=== PATIENT | female | born 1935 | race Asian ===

== ENCOUNTER 2018-07-01 08:21 | Inpatient (IN) | payer MEDICARE, BC, OTHER ==
[2018-07-01] VITALS (45 sets, daily range): BP systolic 98–171; BP diastolic 42–95; PULSE 78–106; RESP 12–26; Ht 165.1 cm; Wt 68.0 kg
[~2018-07-01] VITALS: Ht 165.1 cm; Wt 68.0 kg
[2018-07-01] MEDS ORDERED: NACL 0.9% 3 ML SYG IV SCH (11:30)
[2018-07-01] MEDS ORDERED: ONDANSETRON 4 MG INJ IV PRN (11:30)
--- NOTE | 2018-07-01 11:36 | HP ---
Date/Time of Note Date/Time of Note DATE: 07/01/18 TIME: 11:36 Assessment/Plan VTE Prophylaxis Pharmacological prophylaxis: NA/contraindicated Pharm contraindication: bleeding Assessment/Plan Hospital Course 82-year-old female with comorbidities including hypertension, stroke with left hemiparesis, diabetes mellitus type 2, dyslipidemia, hypertension, and hypothyroidism who was found by the family members on the floor with CT head showing left basal ganglia bleed who was prophylactically intubated for airway protection at an outside facility and was transferred to [facility] for further evaluation and management. 1. Acute intracranial hemorrhage. -7 cm left basal ganglia bleed with a 6 mm left rightward midline shift. -Neurosurgery has been consulted. -Patient will remain intubated. -Continue to control blood pressure. -Avoid blood thinners -Patient is a DNR as per the family's request. 2. Hypertension. -Continue blood pressure management to avoid hypertensive episodes. 3. Dyslipidemia. -Continue statins via OGT. 4. Diabetes mellitus type 2. -Continue sliding scale insulin. -Obtain hemoglobin A1c. 5. Hypothyroidism. -Resume Synthroid. Plan: The patient will be admitted to inpatient intensive care floor. The patient will be kept n.p.o. The patient will be started on DVT prophylaxis (B/L SCDs) and gastrointestinal prophylaxis. The patient will remain a DNR. Activities will be bedrest. The rest of the patient's management will be based on the clinical course, inputs from consultants, and the results of diagnostic studies. The plan of care including the patient's poor prognosis was explained to the patient's family, who was at the bedside. The patient's family wanted to keep the patient intubated and current treatment. However they want to avoid any heroic measures including CPR. The patient was seen in collaboration with Dr. Segundo. HPI/SHE Admit Date/Time Admit Date/Time Jul 01, 2018 at 10:31 Hx of Present Illness Reason for admission: Transfer from outside facility for further management of intracranial bleed. Consultants 1. Neurosurgery. 2. Neurology. 3. Pulmonology. This is an 82-year-old female with past medical history of stroke with left hemiparesis, hypertension, dyslipidemia, diabetes mellitus type 2, and hypothyroidism. The patient was in her normal state of health on 06/30/2018 around 10 PM. The patient went to bed. The patient was found down by the family members in the bathroom approximately 7 hours from the time the patient was last well known. The patient had a left gaze deviation. The patient was taken to the nearest emergency room. The patient underwent a CT scan of the brain that showed 7 cm left basal ganglia bleed with a 6 mm left to rightward midline shift. The patient was intubated for airway protection. Patient had an OGT inserted. The patient had elevated blood pressure that was controlled with clevidipine drip. The patient was loaded with 1000 mg Keppra for seizure prophylaxis. The patient got 1 unit of platelet transfusion as per the neurosurgeon's recommendations due to the patient's aspirin use. The patient was transferred to [facility] for further evaluation because of insurance reasons. ROS Subjective hx not possible: pt non-verbal, pt critical status PMH/Family/Social Past Medical History 1. Hypertension. 2. Stroke with left hemiparesis. 3. Diabetes mellitus type 2. 4. Dyslipidemia. 5. Hypertension. 6. Hypothyroidism. Medications Current Medications IV Flush (NS 3 ml) 3 ml PER PROTOCOL IV ; Start 07/01/18 at 11:30 Ondansetron HCl (Zofran Inj) 4 mg Q6H PRN IV NAUSEA/VOMITING; Start 07/01/18 at 11:30 Coded Allergies: No Known Allergy (Unverified , 07/01/18) Exam/Review of Systems Vital Signs Vitals Vital Signs Date Temp Pulse Resp B/P (MAP) Pulse Ox O2 O2 Flow FiO2 Time Delivery Rate 07/01/18 88 15 141/66 Mechanical 11:15 (91) Ventilator 07/01/18 97.1 10:45 07/01/18 100 65 10:30 Exam Exam General: Adequately build 82 year-old female lying in bed in no apparent dis tress. HEENT: Normocephalic, atraumatic. Eyes: Anicteric sclerae, conjunctivae clear. ENT: Nasal septum is midline, oral mucosa is dry. Neck supple, no JVD noticed. Cervical collar in place. Respiratory: Bilaterally diminished breath sounds. ETT to mechanical ventilator. Cardiovascular: S1, S2 heard. Regular rate and rhythm. Abdomen: Soft, nontender, and nondistended. Bowel sounds positive in all 4 quadrants. Genitourinary: Metzger catheter in place. Extremities: No cyanosis, no clubbing, no edema. Peripheral pulses palpable. Neurologic: Patient is sedated. Left upper extremity contracted. Skin: Normal skin turgor. No skin rashes. Additional Comments CT Brain from transferring facility 7 cm left basal ganglia bleed with near complete effacement of the left lateral ventricle. Small volume of intraventricular blood in the posterior horn. 6 mm left to right midline shift. CT Cervical Spine from transferring facility Indeterminate aged 25% T1 compression fracture. AUDREY JO NP Jul 01, 2018 11:36
[2018-07-01] MEDS ORDERED: MIDAZOLAM (DRIP) 50 mg/50 mL 50 ML IV SCH (12:00)
[2018-07-01] MEDS ORDERED: DEXTROSE 50% 50 ML SYRINGE IV PRN ×2 (13:00)
[2018-07-01] MEDS ORDERED: GLUCOSE GEL 15 GRAM TUBE BUCCAL PRN (13:00)
[2018-07-01] MEDS ORDERED: GLUCOSE GEL 15 GRAM TUBE PO PRN ×2 (13:00)
[2018-07-01] MEDS ORDERED: GLUCAGON 1 MG INJ IM PRN (13:00)
[2018-07-01] MEDS ORDERED: FENTAnyl (DRIP) 1000 mcg/100mL 100 ML IV SCH (13:00)
[2018-07-01] MEDS: SOD CHLORIDE 0.9% 1,000 ML IV SCH (13:03)
[2018-07-01] MEDS: INSULIN ASPART [NOVOLOG] 3 ML PEN SC SCH ×3 (13:25→20:43)
[2018-07-01] MEDS ORDERED: niCARdipine 25 MG in SOD CHLORIDE 0.9% 240 ML IV SCH (16:00)
--- NOTE | 2018-07-01 16:57 | CONS ---
Assessment/Plan Assessment/Plan Hospital Course 82 yo F with reported Hx of cerebral aneurysms s/p clipping, CVA and multiple comorbidities... who is admitted to the [facility] ICU for management of a large L basal ganglia hemorrhage. Now s/p Plt transfusion.. Her prognosis for meaningful neurologic recovery is guarded.. P: Await repeat CTH to evaluate for expansion of hemorrhage EEG to evaluate for subclinical seizures Agree with Keppra as ordered for now Ativan iv prn prolonged seizure or cluster Maintain SBP < 160 Hold antiplatelets/anticoagulation indefinitely Cont medical management and other supportive care per primary Will follow clinically, to recommend neurologic studies, as necessary Consultation Date/Type/Reason Admit Date/Time Jul 01, 2018 at 10:31 Type of Consult Neurology Reason for Consultation ICH Requesting Provider: AUDREY JO NP Date/Time of Note DATE: 07/01/18 TIME: 16:57 Hx of Present Illness History was obtained from family and chart review. This is an 82-year-old female with past medical history of stroke with left hemiparesis, hypertension, dyslipidemia, diabetes mellitus type 2, and hypothyroidism. The patient was in her normal state of health on 06/30/2018 around 10 PM. The patient went to bed. The patient was found down by the family members in the bathroom approximately 7 hours from the time the patient was last well known. The patient had a left gaze deviation. The patient was taken to the nearest emergency room. The patient underwent a CT scan of the brain that showed 7 cm left basal ganglia bleed with a 6 mm left to rightward midline shift. The patient was intubated for airway protection. Patient had an OGT inserted. The patient had elevated blood pressure that was controlled with clevidipine drip. The patient was loaded with 1000 mg Keppra for seizure prophylaxis. Patient got 1 unit of platelet transfusion as per the neurosurgeons recommendation due to the patient's aspirin use. The patient was transferred to [facility] for further evaluation because of insurance reasons. Subjective hx not possible: pt non-verbal, pt critical, pt critical status Exam/Review of Systems Exam Vitals Vital Signs Date Temp Pulse Resp B/P (MAP) Pulse Ox O2 O2 Flow FiO2 Time Delivery Rate 07/01/18 40 16:00 07/01/18 88 16 137/66 Mechanical 15:00 (89) Ventilator 07/01/18 100 13:50 07/01/18 97.8 12:00 Exam PE: Gen Appearance: No Apparent Distress HEENT: Intubated Cardiovascular: Regular rate Abdomen: Soft Extremities: Dry NE: The patient was comatose and nonverbal. Cranial nerve examination was limited by mental status. Pupils were equal and reactive to light. There was no afferent pupillary defect. Funduscopic examination was limited. Face was grossly symmetric, w/ present corneal and cough reflexes. Tone was normal. Muscle bulk was normal. I did not see fasciculations. The p atient did not withdraw to noxious stimulation in the UE; minimally withdrew in the LE Coordination and gait testing was limited by mental status. Arm and leg reflexes were within normal limits and symmetric. Ramos's sign was absent. Plantar responses were flexor. Results Result Diagram: 07/01/18 1244 07/01/18 1244 Results 24hrs Laboratory Tests Test 07/01/18 12:44 07/01/18 12:45 07/01/18 13:24 White Blood Count 8.1 Red Blood Count 4.00 L Hemoglobin 12.5 Hematocrit 37.6 Mean Corpuscular Volume 94.0 Mean Corpuscular Hemoglobin 31.3 Mean Corpuscular Hemoglobin Concent 33.2 Red Cell Distribution Width 12.8 Platelet Count 197 Mean Platelet Volume 10.2 Immature Granulocytes % 0.700 H Neutrophils % 75.1 Lymphocytes % 16.3 Monocytes % 7.6 Eosinophils % 0.1 Basophils % 0.2 Nucleated Red Blood Cells % 0.0 Immature Granulocytes # 0.060 H Neutrophils # 6.1 Lymphocytes # 1.3 Monocytes # 0.6 Eosinophils # 0.0 Basophils # 0.0 Nucleated Red Blood Cells # 0.0 Prothrombin Time 11.9 Prothrombin Time Ratio 0.9 INR International Normalized Ratio 0.87 Activated Partial Thromboplast Time 23.2 Sodium Level 141 Potassium Level 4.1 Chloride Level 103 Carbon Dioxide Level 31 Anion Gap 7 Blood Urea Nitrogen 21 H Creatinine 0.66 Est Glomerular Filtrat Rate mL/min Glucose Level 135 Hemoglobin A1c 6.0 H Calcium Level 9.8 Total Bilirubin 0.5 Direct Bilirubin 0.00 Indirect Bilirubin 0.5 Aspartate Amino Transf (AST/SGOT) 61 H Alanine Aminotransferase (ALT/SGPT) 28 Alkaline Phosphatase 66 Creatine Kinase 793 H Creatine Kinase Index 1.0 Creatinine Kinase MB (Mass) 7.57 H Troponin I < 0.012 Total Protein 7.9 Albumin 4.3 Globulin 3.60 H Albumin/Globulin Ratio 1.19 Thyroid Stimulating Hormone (TSH) 2.140 Phosphorus Level 3.4 Magnesium Level 1.9 Triglycerides Level 80 Cholesterol Level 207 H LDL Cholesterol, Calculated 116 HDL Cholesterol 75 Cholesterol/HDL Ratio 2.7 Free Thyroxine 1.68 Bedside Glucose 143 Medications Medication Current Medications IV Flush (NS 3 ml) 3 ml PER PROTOCOL IV ; Start 07/01/18 at 11:30 Ondansetron HCl (Zofran Inj) 4 mg Q6H PRN IV NAUSEA/VOMITING; Start 07/01/18 at 11:30 Midazolam HCl 50 ml @ 1 mls/hr TITRATE IV ; Start 07/01/18 at 12:00 Fentanyl 100 ml @ 2.5 mls/hr TITRATE IV ; Start 07/01/18 at 13:00 Sodium Chloride 1,000 ml @ 75 mls/hr [id number] IV Last administered on 07/01/18at 13:03; Admin Dose 75 MLS/HR; Start 07/01/18 at 12:30 Pantoprazole (Protonix Iv) 40 mg BID@06,18 IV ; Start 07/01/18 at 18:00 Insulin Aspart (Novolog Insulin Pen) NOVOLOG *MILD* ALGORITHM Q4H SC Last administered on 07/01/18at 13:25; Admin Dose 1 UNIT; Start 07/01/18 at 13:30 Labetalol HCl (Labetalol) 10 mg Q10M PRN IV ELEVATED BLOOD PRESSURE; Start 07/01/18 at 12:30 Levothyroxine Sodium (Synthroid) 75 mcg DAILY@06 NGT ; Start 07/02/18 at 06:00 Atorvastatin Calcium (Lipitor) 40 mg HS GTB ; Start 07/01/18 at 21:00 Miscellaneous Information 1 ea NOTE XX ; Start 07/01/18 at 13:00 Glucose (Glutose) 15 gm Q15M PRN PO DECREASED GLUCOSE; Start 07/01/18 at 13:00 Glucose (Glutose) 22.5 gm Q15M PRN PO DECREASED GLUCOSE; Start 07/01/18 at 13:00 Dextrose (D50w Syringe) 25 ml Q15M PRN IV DECREASED GLUCOSE; Start 07/01/18 at 13:00 Dextrose (D50w Syringe) 50 ml Q15M PRN IV DECREASED GLUCOSE; Start 07/01/18 at 13:00 Glucagon (Glucagen) 1 mg Q15M PRN IM DECREASED GLUCOSE; Start 07/01/18 at 13:00 Glucose (Glutose) 15 gm Q15M PRN BUCCAL DECREASED GLUCOSE; Start 07/01/18 at 13:00 Nicardipine HCl 25 mg/Sodium Chloride 250 ml @ 50 mls/hr TITRATE IV ; Start 07/01/18 at 16:00 Past Medical History reviewed Medications Current Medications IV Flush (NS 3 ml) 3 ml PER PROTOCOL IV ; Start 07/01/18 at 11:30 Ondansetron HCl (Zofran Inj) 4 mg Q6H PRN IV NAUSEA/VOMITING; Start 07/01/18 at 11:30 Midazolam HCl 50 ml @ 1 mls/hr TITRATE IV ; Start 07/01/18 at 12:00 Fentanyl 100 ml @ 2.5 mls/hr TITRATE IV ; Start 07/01/18 at 13:00 Sodium Chloride 1,000 ml @ 75 mls/hr [id number] IV Last administered on 07/01/18at 13:03; Admin Dose 75 MLS/HR; Start 07/01/18 at 12:30 Pantoprazole (Protonix Iv) 40 mg BID@06,18 IV ; Start 07/01/18 at 18:00 Insulin Aspart (Novolog Insulin Pen) NOVOLOG *MILD* ALGORITHM Q4H SC Last administered on 07/01/18at 13:25; Admin Dose 1 UNIT; Start 07/01/18 at 13:30 Labetalol HCl (Labetalol) 10 mg Q10M PRN IV ELEVATED BLOOD PRESSURE; Start 07/01/18 at 12:30 Levothyroxine Sodium (Synthroid) 75 mcg DAILY@06 NGT ; Start 07/02/18 at 06:00 Atorvastatin Calcium (Lipitor) 40 mg HS GTB ; Start 07/01/18 at 21:00 Miscellaneous Information 1 ea NOTE XX ; Start 07/01/18 at 13:00 Glucose (Glutose) 15 gm Q15M PRN PO DECREASED GLUCOSE; Start 07/01/18 at 13:00 Glucose (Glutose) 22.5 gm Q15M PRN PO DECREASED GLUCOSE; Start 07/01/18 at 13:00 Dextrose (D50w Syringe) 25 ml Q15M PRN IV DECREASED GLUCOSE; Start 07/01/18 at 13:00 Dextrose (D50w Syringe) 50 ml Q15M PRN IV DECREASED GLUCOSE; Start 07/01/18 at 13:00 Glucagon (Glucagen) 1 mg Q15M PRN IM DECREASED GLUCOSE; Start 07/01/18 at 13:00 Glucose (Glutose) 15 gm Q15M PRN BUCCAL DECREASED GLUCOSE; Start 07/01/18 at 13:00 Nicardipine HCl 25 mg/Sodium Chloride 250 ml @ 50 mls/hr TITRATE IV ; Start 07/01/18 at 16:00 Allergies: Coded Allergies: No Known Allergy (Unverified , 07/01/18) Past Surgical History reviewed Social History reviewed Smoking Status: Never smoker MARIALUISA GRUBER NP Jul 01, 2018 16:57 MARKOS MAX Jul 01, 2018 20:08
--- NOTE | 2018-07-01 16:58 | CONS ---
DATE OF ADMISSION: 07/01/2018 DATE OF CONSULTATION: REASON FOR CONSULT: Shortness of breath. Thank you, Dr. Carlson for this consultation. HISTORY OF PRESENT ILLNESS: This is an 82-year-old lady with history of CVA with left hemiparesis, h ypertension, hyperlipidemia, diabetes, was in her normal state of health until she was found minimall y responsive with left gaze the following morning by family members. Emergent CT of the brain shows 7 cm left basal ganglia hemorrhage with a 6 mm rightward midline shift. She was intubated for airway protection, transferred to [facility], now for continuing care for insurance purposes. PAST MEDICAL HISTORY: As above. MEDICATIONS: Per chart. ALLERGIES: NONE. SOCIAL HISTORY: Nonsmoker, no alcohol, no history of drug use. FAMILY HISTORY: Noncontributory. SYSTEMS REVIEW: A 12-point review of systems was negative other than mentioned above. PHYSICAL EXAMINATION: GENERAL: Elderly-appearing lady, intubated on mechanical ventilation, appears comfortable at rest, n o acute distress. VITAL SIGNS: Currently afebrile, pulse is 85, blood pressure 137/66, O2 saturation 96%, FIO2 of 65%. NECK: Supple. JVD is not elevated. CARDIAC: S1, S2, no added sounds or murmurs. CHEST: Diminished air entry bilaterally with few rales. ABDOMEN: Soft, nontender. No guarding or rebound. EXTREMITIES: No cyanosis, clubbing or edema. NEUROLOGIC: Unable to assess. LABORATORY DATA: White count 8.1, hemoglobin 12.5, platelets of 197. Chemistry: BUN 21, creatinine 0.66. INR 0.872. IMPRESSION: 1. Acute cerebrovascular accident. 2. Encephalopathy. 3. Intubated for airway protection. 4. History of hypertension. 5. History of diabetes mellitus. PLAN: 1. Continue mechanical ventilation. 2. Repeat CT head and neurosurgery recommendations. 3. Continue antiepileptic. 4. DVT and GI prophylaxis. Dictated By: LEROY KEENAN MD SV/NTS Conf#: [id number] DID#: [id number] CC: MARIBELL CARLSON MD; CHIN LU MD;*EndCC*
[2018-07-01] MEDS: PANTOPRAZOLE 40 MG INJ IV SCH (17:37)
[2018-07-01] MEDS: LABETALOL HCL 20MG INJ IV PRN (18:33)
[2018-07-01] MEDS ORDERED: LEVETIRACETAM 500 MG (PMX) 100 ML IVPB SCH (21:00)
[2018-07-01] MEDS ORDERED: ATORVASTATIN 40 MG TAB GTB SCH (21:00)
[2018-07-02] VITALS (53 sets, daily range): BP systolic 98–175; BP diastolic 54–91; PULSE 73–97; RESP 8–26
[2018-07-02] MEDS: INSULIN ASPART [NOVOLOG] 3 ML PEN SC SCH ×4 (02:33→14:00)
[2018-07-02] MEDS: SOD CHLORIDE 0.9% 1,000 ML IV SCH ×2 (02:36→16:08)
[2018-07-02] MEDS: LABETALOL HCL 20MG INJ IV PRN ×4 (02:49→16:09)
[2018-07-02] MEDS ORDERED: LEVOTHYROXINE 75 MCG TAB NGT SCH (06:00)
[2018-07-02] MEDS: PANTOPRAZOLE 40 MG INJ IV SCH (06:27)
--- NOTE | 2018-07-02 07:32 | RADRPT ---
Echocardiogram Report Patient Name: Jarod COWARTtient ID: [id number] : 5 (82y 9m)Study Date: 07/01/2018 2:37:07 PM Gender: FAccession #: [id number] Tech: William Arreguin [facility] Location: 119-A Ref.Physician: AUDREY JO Height(Cm): BSA: Weight(Kg): Quality: Technically Difficult StudyAccount #: Procedures: Echocardiographic Report: Transthoracic echocardiogram with complete 2D, M-Mode, and doppler examination. Indications: Stroke. Measurements: 2D/M Mode Doppler Measurement Value Normal Range Measurement Value Normal Range LVIDd 2D 3.3 [ 3.8 - 5.2 ] cm AV Peak Mao 1.3 [ 100.0 - 170.0 ] cm/sec LVIDs 2D 2.0 [ 2.2 - 3.5 ] cm AV Peak PG 6.0 [ 2.0 - 9.0 ] mmHg LVPWd 2D 1.0 [ 0.6 - 0.9 ] cm LVOT Peak Mao 1.0 [ 70.0 - 110.0 ] cm/sec IVSd 2D 1.2 [ 0.6 - 0.9 ] cm LVOT Peak PG 4.0 [ 2.0 - 6.0 ] mmHg AoR Diam 2D 1.9 [ 2.3 - 3.1 ] cm MV E Peak Mao 0.9 [ 60.0 - 130.0 ] cm/sec EDV 2D 45.8 [ 46.0 - 106.0 ] ml MV A Peak Mao 0.8 [ 100.0 - 120.0 ] cm/sec ESV 2D 12.7 [ 14.0 - 42.0 ] ml MV E/A 1.1 [ 0.8 - 1.5 ] ratio EF 2D 72.3 [ 54.0 - 74.0 ] percent MV Decel Time 158 [ 104 - 258 ] msec LA Dimen 2D 3.6 [ 2.7 - 3.8 ] cm Lat E` Mao 0.1 [ 10.0 - 15.0 ] cm/sec Lateral E/E` 10.5 [ 1.0 - 2.0 ] ratio Med E` Mao 0.0 cm/sec MV E/A 1.1 [ 0.8 - 1.5 ] ratio TR Peak Mao 2.7 [ 100.0 - 280.0 ] cm/sec TR Peak PG 30.0 mmHg RVSP 40.0 [ 10.0 - 36.0 ] mmHg Findings: Left Ventricle: Normal left ventricular systolic function. Normal left ventricular cavity size. Sigmoid septum. Ejection fraction is visually estimated at 65 %. Tissue Doppler/Mitral Doppler indices are consistent with impaired relaxation (Stage I diastolic dysfunction). Right Ventricle: Normal right ventricular size. Normal right ventricular systolic function. Left Atrium: The left atrium is normal in size. Right Atrium: The right atrium is normal in size. Mitral Valve: Mild mitral leaflet calcification. Mild mitral annular calcification. Trace mitral regurgitation. Aortic Valve: No significant aortic stenosis or insufficiency. Aortic valve not well visualized. Aortic cusps appear mildly calcified. Tricuspid Valve: Normal appearance of the tricuspid valve. Tricuspid valve not well visualized. Estimated peak PA systolic pressure 40 mmHg. There is mild tricuspid regurgitation. Pulmonic Valve: Pulmonic valve not well visualized. Pericardium: Normal pericardium with no significant pericardial effusion. Aorta: Normal aortic root. IVC: Normal size and normal respiratory collapse consistent with normal right atrial pressure. Conclusions: Normal left ventricular systolic function. Normal left ventricular cavity size. Sigmoid septum. Ejection fraction is visually estimated at 65 %. Tissue Doppler/Mitral Doppler indices are consistent with impaired relaxation (Stage I diastolic dysfunction). Mild mitral leaflet calcification. Mild mitral annular calcification. Trace mitral regurgitation. No significant aortic stenosis or insufficiency. Aortic valve not well visualized. Aortic cusps appear mildly calcified. Normal appearance of the tricuspid valve. Tricuspid valve not well visualized. Estimated peak PA systolic pressure 40 mmHg. There is mild tricuspid regurgitation. Electronically Signed By: Kyle Montaño 2018-07-02 07:31:02 PST
--- NOTE | 2018-07-02 09:11 | PN ---
Date/Time of Note Date/Time of Note DATE: 07/02/18 TIME: 09:05 Assessment/Plan VTE Prophylaxis Risk score (from Ns)>0 risk: 12 SCD applied (from Ns): Yes Pharmacological prophylaxis: NA/contraindicated Pharm contraindication: bleeding Lines/Catheters IV Catheter Type (from Nrsg): Saline Lock Urinary Cath still in place: Yes Reason Cath still needed: terminal illness/intractable pain Assessment/Plan Hospital Course SUBJECTIVE: The patient's status unchanged. OBJECTIVE: Physical Exam General: Adequately build 82 year-old female lying in bed in no apparent distress. HEENT: Normocephalic, atraumatic. Eyes: Anicteric sclerae, conjunctivae clear. ENT: Nasal septum is midline, oral mucosa is dry. Neck supple, no JVD noticed. Cervical collar in place. Respiratory: Bilaterally diminished breath sounds. ETT to mechanical ventilator. Cardiovascular: S1, S2 heard. Regular rate and rhythm. Abdomen: Soft, nontender, and nondistended. Bowel sounds positive in all 4 quadrants. Genitourinary: Metzger catheter in place. Extremities: No cyanosis, no clubbing, no edema. Peripheral pulses palpable. Neurologic: Patient is sedated. Left upper extremity contracted. Skin: Normal skin turgor. No skin rashes. Labs & Vitals per chart ASSESSMENT & PLAN 82-year-old female with comorbidities including hypertension, stroke with left hemiparesis, diabetes mellitus type 2, dyslipidemia, hypertension, and hypothyroidism who was found by the family members on the floor with CT head showing left basal ganglia bleed who was prophylactically intubated for airway protection at an outside facility and was transferred to [facility] for further evaluation and management. 1. Acute intracranial hemorrhage. -7 cm left basal ganglia bleed with a 6 mm left rightward midline shift ( Repeat CT scan showed a large left frontal white matter, lateral basal ganglia and left temporal stem intraparenchymal hemorrhage extending into the ventricular system resulting in surrounding vasogenic edema and mass effect with 7.5 mm of [id number] midline shift). -Neurosurgery has been consulted. -Patient will remain intubated. -Continue to control blood pressure. -Avoid blood thinners -Patient is a DNR as per the family's request. -Being followed by pulmonology and neurology. 2. Hypertension. -Continue blood pressure management to avoid hypertensive episodes. 3. Dyslipidemia. -Continue statins via OGT. 4. Diabetes mellitus type 2. -Continue sliding scale insulin. -Hemoglobin A1c 6.0. 5. Hypothyroidism. -Continue Synthroid. 6. Fluids, electrolytes, and nutrition. -N.p.o. -Continue normal saline. 7. DVT prophylaxis -Bilateral SCDs. 8. Plan. -Continue current care. -Await neurosurgery evaluation. Critical care time: 35 minutes. The patient was seen in collaboration with Dr. Segundo. At 10:15 AM, Dr. Ortiz called back and talked to the patient's son and daughter at the bedside and explained the poor prognosis. The patient's family would like to see Dr. Ortiz in person. Meanwhile, the family will decide between themselves regarding the future plan of care including any aggressive management versus termination of care. Result Diagram: 07/02/18 0427 07/02/18 0435 Results 24hrs Laboratory Tests Test 07/01/18 12:44 07/01/18 12:45 07/01/18 13:24 07/01/18 17:43 White Blood 8.1 Count Red Blood Count 4.00 L Hemoglobin 12.5 Hematocrit 37.6 Mean Corpuscular 94.0 Volume Mean Corpuscular 31.3 Hemoglobin Mean Corpuscular 33.2 Hemoglobin Cari nt Red Cell 12.8 Distribution Width Platelet Count 197 Mean Platelet 10.2 Volume Immature 0.700 H Granulocytes % Neutrophils % 75.1 Lymphocytes % 16.3 Monocytes % 7.6 Eosinophils % 0.1 Basophils % 0.2 Nucleated Red 0.0 Blood Cells % Immature 0.060 H Granulocytes # Neutrophils # 6.1 Lymphocytes # 1.3 Monocytes # 0.6 Eosinophils # 0.0 Basophils # 0.0 Nucleated Red 0.0 Blood Cells # Prothrombin Time 11.9 Prothrombin Time 0.9 Ratio INR 0.87 International Normalized Ratio Activated 23.2 Partial Thrombop last Time Sodium Level 141 Potassium Level 4.1 Chloride Level 103 Carbon Dioxide 31 Level Anion Gap 7 Blood Urea 21 H Nitrogen Creatinine 0.66 Est Glomerular Filtrat Rate mL/min Glucose Level 135 Hemoglobin A1c 6.0 H Calcium Level 9.8 Total Bilirubin 0.5 Direct Bilirubin 0.00 Indirect 0.5 Bilirubin Aspartate Amino 61 H Transf (AST/SGOT ) Alanine 28 Aminotransferase (ALT/SGPT) Alkaline 66 Phosphatase Creatine Kinase 793 H Creatine Kinase 1.0 Index Creatinine 7.57 H Kinase MB (Mass) Troponin I < 0.012 Total Protein 7.9 Albumin 4.3 Globulin 3.60 H Albumin/Globulin 1.19 Ratio Thyroid 2.140 Stimulating Hormone (TSH) Phosphorus Level 3.4 Magnesium Level 1.9 Triglycerides 80 Level Cholesterol 207 H Level LDL Cholesterol, 116 Calculated HDL Cholesterol 75 Cholesterol/HDL 2.7 Ratio Free Thyroxine 1.68 Bedside Glucose 143 128 Test 07/01/18 19:40 07/01/18 20:43 07/02/18 02:32 07/02/18 04:27 Blood Gas Blood arterial Specimen Source Arterial Blood 07/01/2018 8:00: Date Drawn 39 PM Arterial Blood 7.452 H pH (Temp corrected) Arterial Blood 35.1 pCO2 (Temp correct) Arterial Blood 178.8 H pO2 (Temp corrected) Arterial Blood 24.0 HCO3 Arterial Blood 0.4 Base Excess Arterial Blood 98.9 Oxygen Saturatio n Chris Test ACCEPTAB Arterial Blood Right Radial Gas Puncture Site Arterial 0.5 Blood Carboxyhem oglobin Arterial Blood 0 Methemoglobin Blood Gas A-a O2 66.0 H Differential Oxyhemoglobin 98.4 Percent Blood Gas 37.0 Temperature Blood Gas 14.0 Respiration Rate Blood Gas Actual 22 Respiration Rate Blood Gas VENT - AC Modality FiO2 40.0 Blood Gas Tidal 450.0 Volume Blood Gas Low 5.0 PEEP Setting Blood Gas [facility] Notified Whom Blood Gas 07/01/2018 8:08: Notified Time 55 PM Bedside Glucose 124 119 White Blood 7.5 Count Red Blood Count 3.50 L Hemoglobin 11.1 L Hematocrit 33.0 L Mean Corpuscular 94.3 Volume Mean Corpuscular 31.7 Hemoglobin Mean Corpuscular 33.6 Hemoglobin Cari nt Red Cell 12.8 Distribution Width Platelet Count 187 Mean Platelet 10.6 H Volume Immature 0.300 Granulocytes % Neutrophils % 76.8 Lymphocytes % 15.6 Monocytes % 7.2 Eosinophils % 0.0 Basophils % 0.1 Nucleated Red 0.0 Blood Cells % Immature 0.020 Granulocytes # Neutrophils # 5.7 Lymphocytes # 1.2 Monocytes # 0.5 Eosinophils # 0.0 Basophils # 0.0 Nucleated Red 0.0 Blood Cells # Test 07/02/18 04:34 07/02/18 04:35 07/02/18 05:07 07/02/18 07:00 Phosphorus Level 3.1 Magnesium Level 1.8 Creatine Kinase 1063 H Creatine Kinase 0.3 Index Creatinine 2.85 H Kinase MB (Mass) Troponin I 0.028 Sodium Level 141 Potassium Level 4.1 Chloride Level 102 Carbon Dioxide 23 Level Anion Gap 16 #H Blood Urea 18 Nitrogen Creatinine 0.73 Est Glomerular Filtrat Rate mL/min Glucose Level 139 Calcium Level 9.5 Total Bilirubin 0.8 Direct Bilirubin 0.00 Indirect 0.8 Bilirubin Aspartate Amino 49 H Transf (AST/SGOT ) Alanine 28 Aminotransferase (ALT/SGPT) Alkaline 51 Phosphatase Total Protein 6.9 # Albumin 3.8 Globulin 3.10 Albumin/Globulin 1.22 Ratio Bedside Glucose 144 Blood Gas Blood arterial Specimen Source Arterial Blood 07/02/2018 7:17: Date Drawn 22 AM Arterial Blood 7.498 H pH (Temp corrected) Arterial Blood 30.4 L pCO2 (Temp correct) Arterial Blood 119.7 H pO2 (Temp corrected) Arterial Blood 23.1 HCO3 Arterial Blood 0.6 Base Excess Arterial Blood 98.0 Oxygen Saturatio n Chris Test ACCEPTAB Arterial Blood Right Radial Gas Puncture Site Arterial 0 Blood Carboxyhem oglobin Arterial Blood 0.2 Methemoglobin Blood Gas A-a O2 58.5 H Differential Oxyhemoglobin 97.8 Percent Blood Gas 37.0 Temperature Blood Gas 14.0 Respiration Rate Blood Gas Actual 20 Respiration Rate Blood Gas VENT - AC Modality FiO2 30.0 Blood Gas Tidal 450.0 Volume Blood Gas Low 5.0 PEEP Setting Blood Gas TM Notified Whom Blood Gas 07/02/2018 7:26: Notified Time 04 AM Exam/Review of Systems Exam Vitals Vital Signs Date Temp Pulse Resp B/P (MAP) Pulse Ox O2 O2 Flow FiO2 Time Delivery Rate 07/02/18 79 20 100 30 07:37 07/02/18 139/73 Mechanical 07:30 (95) Ventilator 07/02/18 98.5 04:00 Intake and Output 07/01/18 07/01/18 07/02/18 1515:00 23:00 07:00 IntakeIntake Total 150 ml 600 ml 524 ml OutputOutput Total 220 ml 95 ml 230 ml BalanceBalance -70 ml 505 ml 294 ml Results Results 24hrs Laboratory Tests Test 07/01/18 12:44 07/01/18 12:45 07/01/18 13:24 07/01/18 17:43 White Blood 8.1 Count Red Blood Count 4.00 L Hemoglobin 12.5 Hematocrit 37.6 Mean Corpuscular 94.0 Volume Mean Corpuscular 31.3 Hemoglobin Mean Corpuscular 33.2 Hemoglobin Cari nt Red Cell 12.8 Distribution Width Platelet Count 197 Mean Platelet 10.2 Volume Immature 0.700 H Granulocytes % Neutrophils % 75.1 Lymphocytes % 16.3 Monocytes % 7.6 Eosinophils % 0.1 Basophils % 0.2 Nucleated Red 0.0 Blood Cells % Immature 0.060 H Granulocytes # Neutrophils # 6.1 Lymphocytes # 1.3 Monocytes # 0.6 Eosinophils # 0.0 Basophils # 0.0 Nucleated Red 0.0 Blood Cells # Prothrombin Time 11.9 Prothrombin Time 0.9 Ratio INR 0.87 International Normalized Ratio Activated 23.2 Partial Thrombop last Time Sodium Level 141 Potassium Level 4.1 Chloride Level 103 Carbon Dioxide 31 Level Anion Gap 7 Blood Urea 21 H Nitrogen Creatinine 0.66 Est Glomerular Filtrat Rate mL/min Glucose Level 135 Hemoglobin A1c 6.0 H Calcium Level 9.8 Total Bilirubin 0.5 Direct Bilirubin 0.00 Indirect 0.5 Bilirubin Aspartate Amino 61 H Transf (AST/SGOT ) Alanine 28 Aminotransferase (ALT/SGPT) Alkaline 66 Phosphatase Creatine Kinase 793 H Creatine Kinase 1.0 Index Creatinine 7.57 H Kinase MB (Mass) Troponin I < 0.012 Total Protein 7.9 Albumin 4.3 Globulin 3.60 H Albumin/Globulin 1.19 Ratio Thyroid 2.140 Stimulating Hormone (TSH) Phosphorus Level 3.4 Magnesium Level 1.9 Triglycerides 80 Level Cholesterol 207 H Level LDL Cholesterol, 116 Calculated HDL Cholesterol 75 Cholesterol/HDL 2.7 Ratio Free Thyroxine 1.68 Bedside Glucose 143 128 Test 07/01/18 19:40 07/01/18 20:43 07/02/18 02:32 07/02/18 04:27 Blood Gas Blood arterial Specimen Source Arterial Blood 07/01/2018 8:00: Date Drawn 39 PM Arterial Blood 7.452 H pH (Temp corrected) Arterial Blood 35.1 pCO2 (Temp correct) Arterial Blood 178.8 H pO2 (Temp corrected) Arterial Blood 24.0 HCO3 Arterial Blood 0.4 Base Excess Arterial Blood 98.9 Oxygen Saturatio n Chris Test ACCEPTAB Arterial Blood Right Radial Gas Puncture Site Arterial 0.5 Blood Carboxyhem oglobin Arterial Blood 0 Methemoglobin Blood Gas A-a O2 66.0 H Differential Oxyhemoglobin 98.4 Percent Blood Gas 37.0 Temperature Blood Gas 14.0 Respiration Rate Blood Gas Actual 22 Respiration Rate Blood Gas VENT - AC Modality FiO2 40.0 Blood Gas Tidal 450.0 Volume Blood Gas Low 5.0 PEEP Setting Blood Gas D [facility] Notified Whom Blood Gas 07/01/2018 8:08: Notified Time 55 PM Bedside Glucose 124 119 White Blood 7.5 Count Red Blood Count 3.50 L Hemoglobin 11.1 L Hematocrit 33.0 L Mean Corpuscular 94.3 Volume Mean Corpuscular 31.7 Hemoglobin Mean Corpuscular 33.6 Hemoglobin Cari nt Red Cell 12.8 Distribution Width Platelet Count 187 Mean Platelet 10.6 H Volume Immature 0.300 Granulocytes % Neutrophils % 76.8 Lymphocytes % 15.6 Monocytes % 7.2 Eosinophils % 0.0 Basophils % 0.1 Nucleated Red 0.0 Blood Cells % Immature 0.020 Granulocytes # Neutrophils # 5.7 Lymphocytes # 1.2 Monocytes # 0.5 Eosinophils # 0.0 Basophils # 0.0 Nucleated Red 0.0 Blood Cells # Test 07/02/18 04:34 07/02/18 04:35 07/02/18 05:07 07/02/18 07:00 Phosphorus Level 3.1 Magnesium Level 1.8 Creatine Kinase 1063 H Creatine Kinase 0.3 Index Creatinine 2.85 H Kinase MB (Mass) Troponin I 0.028 Sodium Level 141 Potassium Level 4.1 Chloride Level 102 Carbon Dioxide 23 Level Anion Gap 16 #H Blood Urea 18 Nitrogen Creatinine 0.73 Est Glomerular Filtrat Rate mL/min Glucose Level 139 Calcium Level 9.5 Total Bilirubin 0.8 Direct Bilirubin 0.00 Indirect 0.8 Bilirubin Aspartate Amino 49 H Transf (AST/SGOT ) Alanine 28 Aminotransferase (ALT/SGPT) Alkaline 51 Phosphatase Total Protein 6.9 # Albumin 3.8 Globulin 3.10 Albumin/Globulin 1.22 Ratio Bedside Glucose 144 Blood Gas Blood arterial Specimen Source Arterial Blood 07/02/2018 7:17: Date Drawn 22 AM Arterial Blood 7.498 H pH (Temp corrected) Arterial Blood 30.4 L pCO2 (Temp correct) Arterial Blood 119.7 H pO2 (Temp corrected) Arterial Blood 23.1 HCO3 Arterial Blood 0.6 Base Excess Arterial Blood 98.0 Oxygen Saturatio n Chris Test ACCEPTAB Arterial Blood Right Radial Gas Puncture Site Arterial 0 Blood Carboxyhem oglobin Arterial Blood 0.2 Methemoglobin Blood Gas A-a O2 58.5 H Differential Oxyhemoglobin 97.8 Percent Blood Gas 37.0 Temperature Blood Gas 14.0 Respiration Rate Blood Gas Actual 20 Respiration Rate Blood Gas VENT - AC Modality FiO2 30.0 Blood Gas Tidal 450.0 Volume Blood Gas Low 5.0 PEEP Setting Blood Gas TM Notified Whom Blood Gas 07/02/2018 7:26: Notified Time 04 AM Medications Medication Current Medications IV Flush (NS 3 ml) 3 ml PER PROTOCOL IV ; Start 07/01/18 at 11:30 Ondansetron HCl (Zofran Inj) 4 mg Q6H PRN IV NAUSEA/VOMITING; Start 07/01/18 at 11:30 Midazolam HCl 50 ml @ 1 mls/hr TITRATE IV ; Start 07/01/18 at 12:00 Fentanyl 100 ml @ 2.5 mls/hr TITRATE IV ; Start 07/01/18 at 13:00 Sodium Chloride 1,000 ml @ 75 mls/hr [id number] IV Last administered on 07/02/18at 02:36; Admin Dose 75 MLS/HR; Start 07/01/18 at 12:30 Pantoprazole (Protonix Iv) 40 mg BID@06,18 IV Last administered on 07/02/18 0 6:27; Admin Dose 40 MG; Start 07/01/18 at 18:00 Insulin Aspart (Novolog Insulin Pen) NOVOLOG *MILD* ALGORITHM Q4H SC Last administered on 07/01/18 13:25; Admin Dose 1 UNIT; Start 07/01/18 at 13:30 Labetalol HCl (Labetalol) 10 mg Q10M PRN IV ELEVATED BLOOD PRESSURE Last administered on 07/02/18 04:26; Admin Dose 10 MG; Start 07/01/18 at 12:30 Levothyroxine Sodium (Synthroid) 75 mcg DAILY@06 NGT Last administered on 07/02/18 06:27; Admin Dose 75 MCG; Start 07/02/18 at 06:00 Atorvastatin Calcium (Lipitor) 40 mg HS GTB Last administered on 07/01/18at 20:44; Admin Dose 40 MG; Start 07/01/18 at 21:00 Miscellaneous Information 1 ea NOTE XX ; Start 07/01/18 at 13:00 Glucose (Glutose) 15 gm Q15M PRN PO DECREASED GLUCOSE; Start 07/01/18 at 13:00 Glucose (Glutose) 22.5 gm Q15M PRN PO DECREASED GLUCOSE; Start 07/01/18 at 13:00 Dextrose (D50w Syringe) 25 ml Q15M PRN IV DECREASED GLUCOSE; Start 07/01/18 at 13:00 Dextrose (D50w Syringe) 50 ml Q15M PRN IV DECREASED GLUCOSE; Start 07/01/18 at 13:00 Glucagon (Glucagen) 1 mg Q15M PRN IM DECREASED GLUCOSE; Start 07/01/18 at 13:00 Glucose (Glutose) 15 gm Q15M PRN BUCCAL DECREASED GLUCOSE; Start 07/01/18 at 13:00 Nicardipine HCl 25 mg/Sodium Chloride 250 ml @ 50 mls/hr TITRATE IV ; Start 07/01/18 at 16:00 AUDREY JO NP Jul 02, 2018 09:11
--- NOTE | 2018-07-02 14:12 | CONS ---
Assessment/Plan Assessment/Plan Hospital Course 82 yo F with reported Hx of cerebral aneurysms s/p clipping, CVA and multiple comorbidities... who is admitted to the [facility] ICU for management of a large L basal ganglia hemorrhage. Now s/p Plt transfusion.. Repeat CTH is notable for expansion of the large L basal ganglia hemorrhage into the lateral and third ventricles Her prognosis for meaningful neurologic recovery is poor.. P: Awaiting family decision to transition goals of care Await EEG to evaluate for subclinical seizures Agree with Giovany as ordered for now Ativan iv prn prolonged seizure or cluster Maintain SBP < 160 Hold antiplatelets/anticoagulation indefinitely Cont medical management and other supportive care per primary Will follow clinically, to recommend neurologic studies, as necessary Consultation Date/Type/Reason Admit Date/Time Jul 01, 2018 at 10:31 Type of Consult Neurology Reason for Consultation I[facility] Requesting Provider: AUDREY JO NP Date/Time of Note DATE: 07/02/18 TIME: 14:12 24 HR Interval Summary Free Text/Dictation Continues critical care. S/p repeat CTH. Case reportedly discussed with neurosurgery who stated that no surgical intervention is warranted at this time. Subjective hx not possible: pt non-verbal, pt critical, pt critical status Exam Vital Signs Vitals Vital Signs Date Temp Pulse Resp B/P (MAP) Pulse Ox O2 O2 Flow FiO2 Time Delivery Rate 07/02/18 80 16 98 30 13:41 07/02/18 150/61 13:30 (90) 07/02/18 Mechanical 12:30 Ventilator 07/02/18 97.8 12:00 Intake and Output 07/01/18 07/01/18 07/02/18 1515:00 23:00 07:00 IntakeIntake Total 150 ml 600 ml 524 ml OutputOutput Total 220 ml 95 ml 230 ml BalanceBalance -70 ml 505 ml 294 ml Exam PE: Gen Appearance: No Apparent Distress HEENT: Intubated Cardiovascular: Regular rate Abdomen: Soft Extremities: Dry NE: The patient was obtunded. Briefly opened eyes to noxious stimuli. Cranial nerve examination was limited by mental status. Pupils were equal and reactive to light. There was no afferent pupillary defect. Funduscopic examination was limited. Face was grossly symmetric, w/ present corneal and cough reflexes. Tone was normal. Muscle bulk was normal. I did not see fasciculations. Tripleflexion of the R side was noted. Coordination and gait testing was limited by mental status. Arm and leg reflexes were within normal limits and symmetric. Ramos's sign was absent. Plantar responses were flexor. MARIALUISA GRUBER NP Jul 02, 2018 14:12
--- NOTE | 2018-07-02 14:26 | CONS ---
Consult Date/Type/Reason Admit Date/Time Jul 01, 2018 at 10:31 Initial Consult Date Type of Consult Pulmonary Requesting Provider: AUDREY JO NP Date/Time of Note DATE: 07/02/18 TIME: 14:25 Subjective Patient remains intubated on mechanical ventilation appears comfortable at rest. Objective Vital Signs Date Temp Pulse Resp B/P (MAP) Pulse Ox O2 O2 Flow FiO2 Time Delivery Rate 07/02/18 80 16 98 30 13:41 07/02/18 150/61 13:30 (90) 07/02/18 Mechanical 12:30 Ventilator 07/02/18 97.8 12:00 Intake and Output 07/01/18 07/01/18 07/02/18 1515:00 23:00 07:00 IntakeIntake Total 150 ml 600 ml 524 ml OutputOutput Total 220 ml 95 ml 230 ml BalanceBalance -70 ml 505 ml 294 ml Exam PHYSICAL EXAMINATION: GENERAL: Elderly-appearing lady, intubated on mechanical ventilation, appears comfortable at rest, no acute distress. VITAL SIGNS: NECK: Supple. JVD is not elevated. CARDIAC: S1, S2, no added sounds or murmurs. CHEST: Diminished air entry bilaterally with few rales. ABDOMEN: Soft, nontender. No guarding or rebound. EXTREMITIES: No cyanosis, clubbing or edema. NEUROLOGIC: Unable to assess. Vent Setting Ventilator Support Mode: AC Fraction of Inspired Oxygen pe: 30 Positive End Expiratory Pressu: 5.0 Results/Medications Result Diagram: 07/02/18 0427 07/02/18 0435 Results 24 hrs Laboratory Tests Test 07/01/18 17:43 07/01/18 19:40 07/01/18 20:43 07/02/18 02:32 Bedside Glucose 128 124 119 Blood Gas Blood arterial Specimen Source Arterial Blood 07/01/2018 8:00: Date Drawn 39 PM Arterial Blood 7.452 H pH (Temp corrected) Arterial Blood 35.1 pCO2 (Temp correct) Arterial Blood 178.8 H pO2 (Temp corrected) Arterial Blood 24.0 HCO3 Arterial Blood 0.4 Base Excess Arterial Blood 98.9 Oxygen Saturatio n Chris Test ACCEPTAB Arterial Blood Right Radial Gas Puncture Site Arterial 0.5 Blood Carboxyhem oglobin Arterial Blood 0 Methemoglobin Blood Gas A-a O2 66.0 H Differential Oxyhemoglobin 98.4 Percent Blood Gas 37.0 Temperature Blood Gas 14.0 Respiration Rate Blood Gas Actual 22 Respiration Rate Blood Gas VENT - AC Modality FiO2 40.0 Blood Gas Tidal 450.0 Volume Blood Gas Low 5.0 PEEP Setting Blood Gas D [facility] Notified Whom Blood Gas 07/01/2018 8:08: Notified Time 55 PM Test 07/02/18 04:27 07/02/18 04:34 07/02/18 04:35 07/02/18 05:07 White Blood 7.5 Count Red Blood Count 3.50 L Hemoglobin 11.1 L Hematocrit 33.0 L Mean Corpuscular 94.3 Volume Mean Corpuscular 31.7 Hemoglobin Mean Corpuscular 33.6 Hemoglobin Cari nt Red Cell 12.8 Distribution Width Platelet Count 187 Mean Platelet 10.6 H Volume Immature 0.300 Granulocytes % Neutrophils % 76.8 Lymphocytes % 15.6 Monocytes % 7.2 Eosinophils % 0.0 Basophils % 0.1 Nucleated Red 0.0 Blood Cells % Immature 0.020 Granulocytes # Neutrophils # 5.7 Lymphocytes # 1.2 Monocytes # 0.5 Eosinophils # 0.0 Basophils # 0.0 Nucleated Red 0.0 Blood Cells # Phosphorus Level 3.1 Magnesium Level 1.8 Creatine Kinase 1063 H Creatine Kinase 0.3 Index Creatinine 2.85 H Kinase MB (Mass) Troponin I 0.028 Sodium Level 141 Potassium Level 4.1 Chloride Level 102 Carbon Dioxide 23 Level Anion Gap 16 #H Blood Urea 18 Nitrogen Creatinine 0.73 Est Glomerular Filtrat Rate mL/min Glucose Level 139 Calcium Level 9.5 Total Bilirubin 0.8 Direct Bilirubin 0.00 Indirect 0.8 Bilirubin Aspartate Amino 49 H Transf (AST/SGOT ) Alanine 28 Aminotransferase (ALT/SGPT) Alkaline 51 Phosphatase Total Protein 6.9 # Albumin 3.8 Globulin 3.10 Albumin/Globulin 1.22 Ratio Bedside Glucose 144 Test 07/02/18 07:00 07/02/18 08:55 07/02/18 13:56 Blood Gas Blood arterial Specimen Source Arterial Blood 07/02/2018 7:17: Date Drawn 22 AM Arterial Blood 7.498 H pH (Temp corrected) Arterial Blood 30.4 L pCO2 (Temp correct) Arterial Blood 119.7 H pO2 (Temp corrected) Arterial Blood 23.1 HCO3 Arterial Blood 0.6 Base Excess Arterial Blood 98.0 Oxygen Saturatio n Chris Test ACCEPTAB Arterial Blood Right Radial Gas Puncture Site Arterial 0 Blood Carboxyhem oglobin Arterial Blood 0.2 Methemoglobin Blood Gas A-a O2 58.5 H Differential Oxyhemoglobin 97.8 Percent Blood Gas 37.0 Temperature Blood Gas 14.0 Respiration Rate Blood Gas Actual 20 Respiration Rate Blood Gas VENT - AC Modality FiO2 30.0 Blood Gas Tidal 450.0 Volume Blood Gas Low 5.0 PEEP Setting Blood Gas TM Notified Whom Blood Gas 07/02/2018 7:26: Notified Time 04 AM Bedside Glucose 138 144 Medications Current Medications IV Flush (NS 3 ml) 3 ml PER PROTOCOL IV ; Start 07/01/18 at 11:30 Ondansetron HCl (Zofran Inj) 4 mg Q6H PRN IV NAUSEA/VOMITING; Start 07/01/18 at 11:30 Midazolam HCl 50 ml @ 1 mls/hr TITRATE IV ; Start 07/01/18 at 12:00 Fentanyl 100 ml @ 2.5 mls/hr TITRATE IV ; Start 07/01/18 at 13:00 Sodium Chloride 1,000 ml @ 75 mls/hr [id number] IV Last administered on 07/02/18at 02:36; Admin Dose 75 MLS/HR; Start 07/01/18 at 12:30 Pantoprazole (Protonix Iv) 40 mg BID@06,18 IV Last administered on 07/02/18 06:27; Admin Dose 40 MG; Start 07/01/18 at 18:00 Insulin Aspart (Novolog Insulin Pen) NOVOLOG *MILD* ALGORITHM Q4H SC Last administered on 07/02/18at 14:00; Admin Dose 1 UNIT; Start 07/01/18 at 13:30 Labetalol HCl (Labetalol) 10 mg Q10M PRN IV ELEVATED BLOOD PRESSURE Last administered on 07/02/18 11:20; Admin Dose 10 MG; Start 07/01/18 at 12:30 Levothyroxine Sodium (Synthroid) 75 mcg DAILY@06 NGT Last administered on 07/02/18at 06:27; Admin Dose 75 MCG; Start 07/02/18 at 06:00 Atorvastatin Calcium (Lipitor) 40 mg HS GTB Last administered on 07/01/18at 20:44; Admin Dose 40 MG; Start 07/01/18 at 21:00 Miscellaneous Information 1 ea NOTE XX ; Start 07/01/18 at 13:00 Glucose (Glutose) 15 gm Q15M PRN PO DECREASED GLUCOSE; Start 07/01/18 at 13:00 Glucose (Glutose) 22.5 gm Q15M PRN PO DECREASED GLUCOSE; Start 07/01/18 at 13:00 Dextrose (D50w Syringe) 25 ml Q15M PRN IV DECREASED GLUCOSE; Start 07/01/18 at 13:00 Dextrose (D50w Syringe) 50 ml Q15M PRN IV DECREASED GLUCOSE; Start 07/01/18 at 13:00 Glucagon (Glucagen) 1 mg Q15M PRN IM DECREASED GLUCOSE; Start 07/01/18 at 13:00 Glucose (Glutose) 15 gm Q15M PRN BUCCAL DECREASED GLUCOSE; Start 07/01/18 at 13:00 Nicardipine HCl 25 mg/Sodium Chloride 250 ml @ 50 mls/hr TITRATE IV ; Start 07/01/18 at 16:00 Assessment/Plan Hospital Course (Demo Recall) IMPRESSION: 1. Acute cerebrovascular accident. Prior history of CVA 2. Encephalopathy. 3. Intubated for airway protection. 4. History of hypertension. 5. History of diabetes mellitus. 6. Questionable C-spine injury PLAN: 1. Continue mechanical ventilation. Weaning trial once stable from neurological standpoint 2. Repeat CT head and neurosurgery recommendations. DC c-collar if possible 3. Continue antiepileptic. 4. DVT and GI prophylaxis. Critical care time 40 minutes LEROY KEENAN MD, [facility] Jul 02, 2018 14:26
[2018-07-02] MEDS: morphine (DRIP) 100 MG/100 ML 100 ML IV SCH (19:42)
[2018-07-02] MEDS ORDERED: LORAZEPAM 2 MG INJ IV ONE (20:00)
[2018-07-03] VITALS (7 sets, daily range): BP systolic 92–120; BP diastolic 50–58; PULSE 70–98; RESP 5–20
[2018-07-03] MEDS: morphine (DRIP) 100 MG/100 ML 100 ML IV SCH ×5 (00:46→21:53)
--- NOTE | 2018-07-03 09:25 | CONS ---
Assessment/Plan Assessment/Plan Assessment/Plan (Daily) Diagnoses: 1) Intracerebral hemorrhage 2) Intraventricular hemorrhage 3) Brain herniation 4) Coma Ms. Garnica is an elderly woman with a large basal ganglia intracerebral hemorrhage. This lesion is deep and causing significant mass effect. It is unlikely that she will have any meaningful recovery and the family has elected for comfort care measures (she was extubated yesterday). Consultation Date/Type/Reason Admit Date/Time Jul 01, 2018 at 10:31 Date of Consultation: Jul 03, 2018 Type of Consult Neurosurgery Reason for Consultation Intracranial hemorrhage Date/Time of Note DATE: 07/03/18 TIME: 09:20 Hx of Present Illness Ms. Garnica is an 82 year old female with a hypertensive left large basal ganglia hemorrhage. She was intially treated at [place] and was transferred here intubated and minimally responsive. Past Medical History Medications Current Medications Morphine Sulfate/ Sodium Chloride 100 ml @ 1 mls/hr TITRATE IV Last administered on 07/03/18at 06:08; Admin Dose 20 MLS/HR; Start 07/02/18 at 19:30 Allergies: Coded Allergies: No Known Allergy (Unverified , 07/01/18) Social History Smoking Status: Never smoker Exam/Review of Systems Exam Vitals Vital Signs Date Temp Pulse Resp B/P (MAP) Pulse Ox O2 O2 Flow FiO2 Time Delivery Rate 07/03/18 98.6 70 18 92/54 (67) 08:00 07/03/18 94 03:01 07/03/18 Nasal 02:00 Cannula 07/03/18 2.0 00:39 07/02/18 30 20:00 Intake and Output 07/02/18 07/02/18 07/03/18 1515:00 23:00 07:00 IntakeIntake Total 600 ml 76 ml 120 ml OutputOutput Total 230 ml 145 ml 15 ml BalanceBalance 370 ml -69 ml 105 ml Exam Extubated Nonverbal Pupils equal and reactive Not localizing extremities Results Result Diagram: 07/02/18 0427 07/02/18 0435 Results 24hrs Laboratory Tests Test 07/02/18 13:56 Bedside Glucose 144 Imaging Imaging Patient with 50cc basal ganglia ICH. Mass effect, midline shift and IVH are present. Medications Medication Current Medications Morphine Sulfate/ Sodium Chloride 100 ml @ 1 mls/hr TITRATE IV Last administered on 07/03/18at 06:08; Admin Dose 20 MLS/HR; Start 07/02/18 at 19:30 MARIBELL CARLSON MD Jul 03, 2018 09:25
[2018-07-03] MEDS: SCOPOLAMINE 1.5 MG PATCH TRANSDERM SCH (11:16)
--- NOTE | 2018-07-03 13:52 | PN ---
Date/Time of Note Date/Time of Note DATE: 07/03/18 TIME: 13:46 Assessment/Plan VTE Prophylaxis Risk score (from Ns)>0 risk: 14 SCD applied (from Ns): Yes Pharmacological prophylaxis: NA/contraindicated, other (Comfort measures) Pharm contraindication: other (Comfort measures only) Lines/Catheters [facility]from [facility] Saline Lock Urinary Cath still in place: Yes Reason Cath still needed: other (indicate) Assessment/Plan Hospital Course SUBJECTIVE: The patient was compassionately extubated on 07/02/2018. Currently the patient i s on a morphine drip. OBJECTIVE: Physical Exam General: Adequately build 82 year-old female lying in bed. Labs & Vitals per chart ASSESSMENT & PLAN 82-year-old female with comorbidities including hypertension, stroke with left hemiparesis, diabetes mellitus type 2, dyslipidemia, hypertension, and hypothyroidism who was found by the family members on the floor with CT head showing left basal ganglia bleed who was prophylactically intubated for airway p rotection at an outside facility and was transferred to [facility] for further evaluation and management. 1. Acute intracranial hemorrhage. -7 cm left basal ganglia bleed with a 6 mm left rightward midline shift ( Repeat CT scan showed a large left frontal white matter, lateral basal ganglia and left temporal stem intraparenchymal hemorrhage extending into the ventricular system resulting in surrounding vasogenic edema and mass effect with 7.5 mm of [id number] midline shift). -Patient was made comfort care on 07/02/2018. 2. Hypertension. 3. Dyslipidemia. 4. Diabetes mellitus type 2. 5. Hypothyroidism. The patient is currently on morphine drip. The patient was started on a scopolamine patch for anticholinergic effects. The patient getting admitted to inpatient hospice with [facility]. Case discussed with Dr. Segundo. Result Diagram: 07/02/18 0427 07/02/18 0435 Results 24hrs Laboratory Tests Test 07/02/18 13:56 Bedside Glucose 144 Exam/Review of Systems Exam Vitals Vital Signs Date Temp Pulse Resp B/P (MAP) Pulse Ox O2 O2 Flow FiO2 Time Delivery Rate 07/03/18 100.7 94 20 120/58 92 Nasal 11:51 (78) Cannula 07/03/18 3.0 09:48 07/02/18 30 20:00 Intake and Output 07/02/18 07/02/1807/03/19 1515:00 23:00 07:00 IntakeIntake Total 600 ml 76 ml 120 ml OutputOutput Total 230 ml 145 ml 15 ml BalanceBalance 370 ml -69 ml 105 ml Results Results 24hrs Laboratory Tests Test 07/02/18 13:56 Bedside Glucose 144 Medications Medication Current Medications Morphine Sulfate/ Sodium Chloride 100 ml @ 1 mls/hr TITRATE IV Last administered on 07/03/18at 11:17; Admin Dose 20 MLS/HR; Start 07/02/18 at 19:30 Scopolamine (Transderm-Scop) 1 patch Q72H TRANSDERM Last administered on 07/03/18at 11:16; Admin Dose 1 PATCH; Start 07/03/18 at 10:00 AUDREY JO NP Jul 03, 2018 13:52
[2018-07-03] MEDS ORDERED: ATROPINE 0.4 MG INJ IV ONE (14:30)
[2018-07-03] MEDS ORDERED: LORAZEPAM 2 MG INJ IV PRN (14:30)
--- NOTE | 2018-07-03 14:35 | CONS ---
Assessment/Plan Assessment/Plan Hospital Course 82 yo F with reported Hx of cerebral aneurysms s/p clipping, CVA and multiple comorbidities... who is admitted to the [facility] ICU for management of a large L basal ganglia hemorrhage. Now s/p Plt transfusion.. Repeat CTH is notable for expansion of the large L basal ganglia hemorrhage into the lateral and third ventricles Her prognosis for meaningful neurologic recovery is poor.. P: Cont comfort measures as requested by family Cont other supportive care per primary Will sign off. Please call with Qs Consultation Date/Type/Reason Admit Date/Time Jul 01, 2018 at 10:31 Type of Consult Neurology Reason for Consultation ICH Requesting Provider: AUDREY JO NP Date/Time of Note DATE: 07/03/18 TIME: 14:34 24 HR Interval Summary Free Text/Dictation Family transitioned to comfort care overnight. On morphine gtt. Seen by hospice nurse. Subjective hx not possible: pt non-verbal Exam Vital Signs Vitals Vital Signs Date Temp Pulse Resp B/P (MAP) Pulse Ox O2 O2 Flow FiO2 Time Delivery Rate 07/03/18 100.7 94 20 120/58 92 Nasal 11:51 (78) Cannula 07/03/18 3.0 09:48 07/02/18 30 20:00 Intake and Output 07/02/18 07/02/18 07/03/18 1515:00 23:00 07:00 IntakeIntake Total 600 ml 76 ml 120 ml OutputOutput Total 230 ml 145 ml 15 ml BalanceBalance 370 ml -69 ml 105 ml Exam PE: Gen Appearance: No Apparent Distress HEENT: Intubated Cardiovascular: Regular rate Abdomen: Soft Extremities: Dry NE: The patient was sedated. Cranial nerve examination was limited by mental status. Pupils were equal and reactive to light. There was no afferent pupillary defect. Funduscopic examination was limited. Face was grossly symmetric, w/ present corneal and cough reflexes. Tone was normal. Muscle bulk was normal. I did not see fasciculations. The pt did not withdraw to noxious stimuli. Coordination and gait testing was limited by mental status. Arm and leg reflexes were within normal limits and symmetric. Ramos's sign was absent. Plantar responses were flexor. MARIALUISA GRUBER NP Jul 03, 2018 14:34
[2018-07-03] MEDS: ATROPINE 1% 5 ML OPH SL PRN ×3 (17:07→22:47)
[2018-07-03] MEDS: ACETAMINOPHEN 650 MG SUPP PR PRN (20:07)
[2018-07-03] MEDS: ARTIFICIAL TEARS 15 ML OPH BOTH EYES SCH (21:53)
--- NOTE | 2018-07-04 01:25 | HP ---
DATE OF ADMISSION: 07/01/2018 LEVEL OF CARE: [facility]. PRIMARY HOSPITAL DIAGNOSIS: Intracranial bleed. COMORBID: Hypertension, diabetes, dyslipidemia. CHIEF COMPLAINT AND HISTORY OF PRESENT ILLNESS: History has been obtained from medical record and di scussion with the patient's family. The patient is an 82-year-old female with hypertension, diabetes and dyslipidemia. The patient also has history of hypothyroidism. The patient was found by the [facility] ricci member on the floor. The patient was brought into ER and subsequently underwent CT of the head w hich revealed left basal ganglia bleed. The patient was intubated prophylactically to protect airway s at an outside facility and was transferred to [facility] for further evaluation a nd management. The patient was seen by neurosurgery and recommended conservative treatment. The mechelle davidson's family requested comfort care. The patient was made DNR and hospice was called due to poor pr ognosis for any meaningful recovery. The patient was terminally extubated and was started on morphin e drip. REVIEW OF SYSTEMS: Could not be done as the patient is nonverbal. The patient does have a terminal fever and was noted to have significant oral secretions. No reported seizure. No reported abdominal distention. No reported leg edema. The patient is nonverbal. As mentioned above, review of system s was unremarkable. PAST MEDICAL HISTORY: As stated above. ALLERGIES: NONE. SOCIAL HISTORY: No smoking, no alcohol. FAMILY HISTORY: Noncontributory. PHYSICAL EXAMINATION: GENERAL: Revealed the patient to be lethargic and nonverbal. VITAL SIGNS: Temperature 101.1, pulse 90, respiration 19, blood pressure 108/53, O2 saturation 97% o n 2 liters cannula. HEENT: No eye discharge or redness. Nose and ears are normal. NECK: No mass. CHEST: Coarse breath sounds, equal air entry. CARDIOVASCULAR: Irregular rate and rhythm. S1, S2 normal. ABDOMEN: Soft, nondistended, nontender. EXTREMITIES: No edema, clubbing, cyanosis. NEUROLOGIC: The patient is nonverbal. LABORATORY DATA: Recently, WBC 7.5, hemoglobin 11.1, platelet 187. Sodium 141, potassium 4.1, BUN 1 8, creatinine 0.7, glucose 144. AST 49, ALT 28, albumin 3.8. DIAGNOSTIC DATA: C-spine x-ray: No fracture. CT of the head: Large left frontal white matter, lat eral basal ganglia and left temporal intraparenchymal hemorrhage with 7.5 mm left to right midline sh ift. IMPRESSION: 1. Massive intracranial bleed. 2. Hypertension. 3. Diabetes mellitus. 4. Hypothyroidism. 5. Dyslipidemia. PLAN: The patient was started on morphine drip after extubation and has been on comfort care. The m orphine dose has been increased up to 20 mg an hour. We will also add scopolamine patch for secretio n and also atropine drops for secretions. We will also add Artificial Tears. The patient will be al so started on IV Ativan for terminal anxiety on p.r.n. basis. The patient's condition and plan of ca re were discussed with patient's sister, Britney and also with [facility] nurse Hawkins as well as [facility] staff Li sinha. We will continue to optimize comfort care. Dictated By: CHELLE MARTINI MD AB/NTS Conf#: [id number] DID#: [id number] CC: MARIBELL CARLSON MD; CHIN LU MD;*EndCC*
[2018-07-04] MEDS: ACETAMINOPHEN 650 MG SUPP PR PRN (01:57)
[2018-07-04 02:02] VITALS: BP 108/52; PULSE 95; RESP 18
[2018-07-04] MEDS: morphine (DRIP) 100 MG/100 ML 100 ML IV SCH ×4 (03:02→21:02)
[2018-07-04 07:20] VITALS: BP 106/51; PULSE 94; RESP 12
[2018-07-04] MEDS: ARTIFICIAL TEARS 15 ML OPH BOTH EYES SCH ×3 (09:18→21:03)
[2018-07-04] MEDS: ATROPINE 1% 5 ML OPH SL PRN (13:31)
[2018-07-04 20:20] VITALS: BP 109/54; PULSE 101; RESP 16
--- NOTE | 2018-07-05 01:08 | PN ---
DATE: 07/02/2018 PRIMARY HOSPITAL DIAGNOSIS: Intracranial bleed. COMORBIDS: Hypertension, diabetes, hypothyroidism. HISTORY OF PRESENT ILLNESS: The patient remains nonverbal. Continues to have intermittent terminal fever. The patient is not in any respiratory distress. After starting her on atropine drops, she is sounding better. The patient, since yesterday evening, had received 4 doses of atropine drops. The patient did not have any seizure. PHYSICAL EXAMINATION: GENERAL: The patient is nonverbal. VITAL SIGNS: T-maximum 103.1, pulse 95, blood pressure 108/52, O2 saturation 96% on 2 liters. HEENT: No eye discharge or redness. Nose and ears normal externally. NECK: No mass. CHEST: Diminished air entry at bases, few coarse breath sounds. CARDIOVASCULAR: Sinus rhythm. ABDOMEN: Soft, nondistended. EXTREMITIES: Trace edema. NEUROLOGIC: The patient is nonverbal. IMPRESSION: 1. Intracranial bleed. 2. Hypertension. 3. Diabetes. 4. Hypothyroidism. PLAN: The patient will be continued on morphine drip at 20 mg an hour and we will titrate it up as n eeded. Continue IV Ativan 1 mg q.4 hours p.r.n. for anxiety and agitation or seizure. Continue atro pine drops q.2h. p.r.n. and scopolamine patch for secretions and chest congestions. Plan of care wa s discussed with the patient's family, the desk nurse and staff nurse at [facility]. Contin ue to optimize comfort care. The patient remains terminally ill and appropriate for GIP level of car e. Dictated By: CHELLE SAAB/NTS Conf#: [id number] DID#: [id number] CC: CHIN LU MD;*EndCC*
[2018-07-05 02:00] VITALS: BP 92/62; PULSE 114; RESP 16
[2018-07-05] MEDS: morphine (DRIP) 100 MG/100 ML 100 ML IV SCH ×4 (02:24→18:45)
[2018-07-05] MEDS: ATROPINE 1% 5 ML OPH SL PRN ×3 (08:05→21:34)
[2018-07-05] MEDS: ARTIFICIAL TEARS 15 ML OPH BOTH EYES SCH ×3 (09:00→21:34)
[2018-07-05 12:39] VITALS: BP 95/55; PULSE 101; RESP 13
[2018-07-05 20:19] VITALS: BP 121/58; PULSE 126; RESP 18
[2018-07-06] MEDS: ATROPINE 1% 5 ML OPH SL PRN ×4 (00:15→10:10)
[2018-07-06] MEDS: morphine (DRIP) 100 MG/100 ML 100 ML IV SCH ×5 (00:32→22:11)
[2018-07-06 08:49] VITALS: BP 99/52; PULSE 117; RESP 14
[2018-07-06] MEDS: ARTIFICIAL TEARS 15 ML OPH BOTH EYES SCH ×3 (08:58→21:05)
[2018-07-06] MEDS: SCOPOLAMINE 1.5 MG PATCH TRANSDERM SCH (09:49)
[2018-07-06 14:47] VITALS: BP 93/49; PULSE 105
[2018-07-06] MEDS: ATROPINE 1% 5 ML OPH SL SCH ×2 (17:06→21:05)
[2018-07-06 19:36] VITALS: BP 87/48; PULSE 103; RESP 16
[2018-07-07] MEDS: ATROPINE 1% 5 ML OPH SL SCH ×6 (00:56→21:35)
[2018-07-07] MEDS: ATROPINE 1% 5 ML OPH SL PRN ×2 (02:42→11:25)
[2018-07-07] MEDS: morphine (DRIP) 100 MG/100 ML 100 ML IV SCH ×4 (03:13→19:03)
--- NOTE | 2018-07-07 07:22 | PN ---
DATE: 07/05/2018 SUBJECTIVE: The patient continues to be unresponsive to verbal and gentle tactile stimuli. Currentl y receiving a morphine drip at 20 mg per hour with orders to titrate up by 1 mg every 15 minutes if n eeded. She has not required titration yet. She has been having excess secretions for which she is c urrently on a scopolamine patch, which was placed on 07/03/2018, and is currently on atropine drops s ulfate 1% at two drops every 2 hours as needed, of which she did receive about two doses in the last 24 hours. 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 She continues to have minimal urine output with only about 200 mL obtain ed since yesterday, which has decreased from 400 on the day before. No pressure sores or rashes repo rted as per several family members at bedside including the patient's son and the daughter. OBJECTIVE: VITAL SIGNS: Temperature 98.7, heart rate 101 per minute and tachycardic, respirations 15 per minute and regular, blood pressure 95/55, saturating 97% on nasal cannula via 2 liters nasal cannula. GENERAL: The patient is an elderly female who is currently nonverbal and nonresponsive to verbal and gentle tactile stimuli. HEENT: PERRL. No pallor or icterus noted. Mouth with dry mucous membranes. NECK: Supple without any jugular venous distention or lymphadenopathy. CARDIOVASCULAR: S1 and S2 present, regular rate and rhythm without any murmurs, rubs or gallops. RESPIRATORY: Clear to auscultation bilaterally without any wheezes, rhonchi or rales. ABDOMEN: Soft, nontender, nondistended. Bowel sounds sluggish. EXTREMITIES: No pedal edema. SKIN: No lesions or sores noted. NEUROLOGIC: The patient is currently unresponsive to verbal and gentle tactile stimuli. ASSESSMENT AND PLAN: Mrs. Garnica is 82-year-old female with the past medical history significant for hypertension, diabetes, dyslipidemia, hypothyroidism who was found down on the floor a few days ago a nd brought to the ER and underwent imaging studies which showed a left basal ganglia bleed and so she was intubated prophylactically. ____ outside hospital and transferred to [facility] for fu rther evaluation and management. Currently, the patient has been extubated and since been admitted w as on comfort care. She was admitted on inpatient hospice unit with comfort measures. Currently, sh e is receiving morphine drip at 20 mg per hour and has been having issues with excess secretions. Ne xt plan, for pain and dyspnea, the patient is currently on morphine drip at 20 mg per hour with order s to titrate up by 1 mg every 15 minutes as needed. Currently, the patient is appearing comfortable, so would recommend continue to monitor. For excess secretions, patient does have scopolamine patch, which was placed on 07/03/2018, which is due to be changed tomorrow, and she also has atropine drops 1% at two drops every 2 hours as needed, which she did receive about two doses in the last 24 hours and currently patient does not have any audible gurgling and appears comfortable, so we recommend to continue to monitor. The patient also has other comfort medications including Artificial Tears which she receives about 2 to 3 times a day as well as a Lorazepam 1 mg every 4 hours as needed. We will continue to monitor. The patient is currently DNR without any aggressive treatment measures. Eugenia hans family members are present with the patient including the patient's son and daughter and all of the questions or concerns have been addressed and answered ____ available 24 hours a day for any questio ns or change in condition. Dictated By: KULDIP MINOR MD PK/NTS Conf#: [id number] DID#: [id number] CC: CHIN LU MD;*EndCC*
--- NOTE | 2018-07-07 07:22 | PN ---
DATE: 07/06/2018 SUBJECTIVE: The patient has been having secretions since yesterday, for which she has been receiving atropine 1%, 2 drops 6 doses in the last 24 hours. She currently appears to be comfortable on the m orphine drip at 20 mg per hour routinely and has not required any titration. She has also been requi ring deep suctioning since yesterday due to excess secretions. She has been afebrile and no pressure s sores or rashes reported. She continues to be unresponsive to verbal and gentle tactile stimuli. OBJECTIVE: VITAL SIGNS: Temperature 98.7, heart rate 108 per minute, tachycardic, respirations 16 per minute an d regular, blood pressure 99/52, saturating 93% at on 5 liters via nasal cannula. GENERAL: The patient is an elderly female who is currently unresponsive to verbal and gentle tactile stimuli. HEENT: Pupils are 3 mm, sluggish reaction to light. NECK: Supple without any jugular venous distention or lymphadenopathy. CARDIOVASCULAR: S1, S2. Regular rate and rhythm without any murmurs, rubs or gallops. LUNGS: Coarse breath sounds bilaterally. ABDOMEN: Soft, nondistended, nontender. Bowel sounds are sluggish. EXTREMITIES: No pedal edema. Some mottling and cyanosis. SKIN: No lesions or sores noted. NEUROLOGIC: The patient is unresponsive to verbal and gentle tactile stimuli. ASSESSMENT AND PLAN: Mrs. Garnica is an 82-year-old female with past medical history significant for h ypertension, diabetes, dyslipidemia, hypothyroidism, who was found down on the floor and was admitted to put into the ER. She subsequently underwent CT scan of the head which revealed left basal gangli a bleed who was subsequently intubated to protect the airways and transferred to [facility] for further evaluation. Currently, she has been extubated and then been transitioned to [facility] to the inpatient hospice unit and has been having issues with excess secretions. The patie nt currently appears to be comfortable on morphine 20 mg per hour drip and she has not had received a ny recent titration in the doses. The patient has been having issues with excess secretions for whic h she is currently on scopolamine patch which was changed today and has been requiring suctioning sin ce yesterday as well as atropine 1%, 2 drops every 2 hours as needed which she did receive about 6 do ses in the last 24 hours. We would recommend a scheduled atropine drops at 2 drops every 4 hours rou nd the clock and every 2 hours as needed. The patient is on other comfort medications also such as A tivan 1 mg every 4 hours as needed, Tylenol suppository 650 mg every 4 hours as needed as well as Art ificial Tears 3 times a day on both eyes. We would recommend to continue comfort measures such as fr equent repositioning. She continues to have decreased urine output and had only 200 mL obtained sinc e yesterday. The patient appears to be a DNR and currently the patient's daughter and her ar e presently at the bedside. All of their questions or concerns have been addressed and answered. I am available 24 hours a day for any questions or change in condition. Dictated By: KULDIP MINOR MD PK/NTS Conf#: [id number] DID#: [id number] CC: CHELLE MARTINI MD; MARIBELL CARLSON MD; CHIN LU MD;*EndCC*
[2018-07-07] MEDS: ARTIFICIAL TEARS 15 ML OPH BOTH EYES SCH ×3 (08:24→20:56)
--- NOTE | 2018-07-07 19:26 | PN ---
DATE: 07/07/2018 SUBJECTIVE AND INTERVAL HISTORY: Follow up on intracranial bleed, hypertension, diabetes, hypothyroi dism. The patient continued to decline and morphine was increased to 21 mg an hour. The patient rem ains nonverbal. The patient did not have any seizure. The patient does have intermittent low grade temperature. The family today requested to discontinue vital signs. The patient's last temperature was 99.5. The patient continued to have drop in her blood pressure from low 100s now down to 87. Th e patient did not have any vomiting, no reported wheezing. PHYSICAL EXAMINATION: GENERAL: Revealed patient to be nonverbal. LAST VITAL SIGNS: Temperature 99.5, pulse 103, respirations 16, blood pressure 87/48, O2 saturation 95% on 5 liters nasal cannula. HEENT: No eye discharge or redness. Nose is normal externally. NECK: No mass. CHEST: Diminished air entry at bases, a few scattered coarse breath sounds. CARDIOVASCULAR: Regular rate and rhythm. S1, S2 normal. ABDOMEN: Soft, nontender. EXTREMITIES: Trace edema. No clubbing or cyanosis. NEUROLOGIC: The patient is nonverbal. IMPRESSION: 1. Intracranial bleed. 2. Hypertension. 3. Diabetes. 4. Hypothyroidism. PLAN: The patient will be continued on morphine drip at 21 mg an hour. We will continue scopolamine patch and atropine drops for chest congestion and oral secretions. The patient has been switched to atropine drops around the clock every 4 hours. Continue Tylenol for terminal fever and IV Ativan p. r.n. for anxiety. The patient last received her dose of Ativan yesterday evening. Plan of care disc ussed with [facility] Tomasz gerber, and [facility] staff nurse and patient's family. We will continue to optimi ze comfort care. The patient remains terminally ill and appropriate for GIP level of care. Dictated By: CHELLE SAAB/NTS Conf#: [id number] DID#: [id number] CC: CHIN LU MD;*End*
[2018-07-07 19:55] VITALS: BP 114/55; PULSE 120; RESP 17
[2018-07-08] MEDS: morphine (DRIP) 100 MG/100 ML 100 ML IV SCH ×3 (00:15→12:08)
[2018-07-08] MEDS: ATROPINE 1% 5 ML OPH SL SCH ×5 (01:01→17:00)
[2018-07-08] MEDS: ARTIFICIAL TEARS 15 ML OPH BOTH EYES SCH ×2 (09:20→13:55)
[2018-07-08] MEDS: ATROPINE 1% 5 ML OPH SL PRN (11:25)
--- NOTE | 2018-07-08 14:55 | PN ---
Date/Time of Note Date/Time of Note DATE: 07/08/18 TIME: 14:54 Assessment/Plan VTE Prophylaxis Risk score (from Ns)>0 risk: 8 SCD applied (from Nsg): No Lines/Catheters IV Catheter Type (from Nrs): Peripheral IV Urinary Cath still in place: Yes Assessment/Plan Assessment/Plan -Sepsis gram-positive cocci bacteremia. Continue broad-spectrum antibiotics. Dr. Kwan is following in infection disease consultation. -Hemodialysis dependent end-stage renal disease. Continue hemodialysis per nephrology. Dr. Fonseca is following in nephrology consultation. -Status post PPM for heart block -Hypertension -GERD -Anemia of chronic disease -Status post dysphagia with PEG -Status post acute respiratory failure -Obesity Exam/Review of Systems Exam Vitals Vital Signs Date Temp Pulse Resp B/P (MAP) Pulse Ox O2 O2 Flow FiO2 Time Delivery Rate 07/08/18 2.0 10:12 07/07/18 Nasal 23:19 Cannula 07/07/18 120 17 114/55 92 19:55 (74) 07/06/18 99.5 19:36 07/05/18 28 18:09 Intake and Output 07/07/18 07/07/18 07/08/18 1515:00 23:00 07:00 IntakeIntake Total 140 ml 142 ml 289 ml OutputOutput Total 350 ml BalanceBalance 140 ml -208 ml 289 ml Medications Medication Current Medications Morphine Sulfate/ Sodium Chloride 100 ml @ 1 mls/hr TITRATE IV Last administered on 07/08/18at 12:08; Admin Dose 21 MLS/HR; Start 07/02/18 at 19:30 Scopolamine (Transderm-Scop) 1 patch Q72H TRANSDERM Last administered on 07/06/18at 09:49; Admin Dose 1 PATCH; Start 07/03/18 at 10:00 Lorazepam (Ativan) 1 mg Q4 PRN IV anxiety Last administered on 07/06/18at 16:43; Admin Dose 1 MG; Start 07/03/18 at 14:30 Atropine Sulfate (Atropine 1% Oph) 2 drop Q2H PRN SL secretions Last administered on 07/08/18at 11:25; Admin Dose 2 DROP; Start 07/03/18 at 14:30 Acetaminophen (Tylenol Supp) 650 mg Q4H PRN MO MILD PAIN(1-3) OR TEMP>38C Last administered on 07/04/18at 01:57; Admin Dose 650 MG; Start 07/03/18 at 20:00 Eye Lubricant (Artificial Tears Oph) 2 drop TID BOTH EYES Last administered on 07/08/18at 13:55; Admin Dose 2 DROP; Start 07/03/18 at 21:30 Atropine Sulfate (Atropine 1% Oph) 2 drop Q4 SL Last administered on 07/08/18 13:54; Admin Dose 2 DROP; Start 07/06/18 at 17:00 YI CURRIE Jul 08, 2018 14:55
[2018-07-08 20:17] VITALS: BP 117/70; PULSE 110; RESP 18
--- NOTE | 2018-07-08 21:54 | PN ---
DATE: 07/08/2018 LEVEL OF CARE: [facility] [place]. SUBJECTIVE: Follow up on intracranial bleed and hypertension. The patient has been having apneic ep isode and is totally unresponsive. The patient also has increasing terminal tachycardia with heart r ate in 220s. No reported seizure. No reported vomiting or bleeding from any site. PHYSICAL EXAMINATION: GENERAL: Lethargic. VITAL SIGNS: Pulse around 120 and respirations 10 with apneic episode. HEENT: No eye discharge or redness. No bleeding from nose or ears. NECK: No mass. CHEST: Diminished air entry at bases. Secretion being managed with atropine drops and scopolamine p atch. CARDIOVASCULAR: Regular rhythm. ABDOMEN: Soft. Nondistended and nontender. EXTREMITIES: No edema. NEUROLOGIC: Nonverbal. IMPRESSION: 1. Intracranial bleed. 2. Hypertension. 3. Diabetes. 4. Hypothyroidism. PLAN: The patient is currently on morphine drip at 1 mg an hour and on continuous atropine drops 2 d rops q.4h. for secretion and chest congestion. The patient does not have terminal agitation or anxie ty. We will continue IV Ativan on p.r.n. basis. The patient remains terminally ill and has a weak p ulse with the decrease in respiration and terminal tachycardia. Plan of care discussed with patient' s family. The patient remains terminally ill and remains appropriate for [facility] [place] level of care. Dictated By: CHELLE MARTINI MD AB/NTS Conf#: [id number] DID#: [id number] CC: CHELLE MARTINI MD; CHIN LU MD; MARIBELL CARLSON MD;*EndCC*
--- NOTE | 2018-07-10 01:16 | DES ---
DATE OF ADMISSION: 07/01/2018 DATE OF : 07/08/2018 DATE OF ADMISSION: 07/01/2018 DATE OF EXPIRATION: 07/08/2018 TIME OF : 1714 Hours. CAUSE OF : Intracranial bleed secondary to hypertension. OTHER DIAGNOSES: Diabetes, hypothyroidism and dyslipidemia. REASON FOR ADMISSION AND HOSPITAL COURSE: The patient is an 82-year-old female with history of hyper tension, diabetes, and dyslipidemia. The patient also had history of hypothyroidism. The patient wa s brought into ER after she was found on the floor. The patient underwent CT of the head which revea led left basilar bleed. The patient was intubated to protect airways at an outside facility and was transferred to [facility] for higher level of care. The patient was seen by neuros urgery and was recommended to continue conservative treatment. The patient was not a candidate for a ny surgical intervention. The patient continued to remain nonverbal and hospice referral was made. The patient was evaluated by hospice on 07/03/2018 and was admitted under [facility] level of care for respi ratory distress. The patient was extubated and was put on supplemental oxygen. The patient also sta rted on morphine drip which was initiated at 1 mg an hour and had to be increased up to 21 mg an hour to provide comfort. The patient also was initially given atropine drops for oral secretions on p.r. n. basis; however, it was subsequently switched to around the clock due to ongoing issue with the ora l secretions. The patient also was started on scopolamine patch. The patient continued to decline a nd did not have any p.o. intake. I had multiple meetings with the patient's family and updated them regarding patient's condition and plan of treatment. The patient yesterday evening was noted to have no breathing. The patient had absent heart sound and pupils were fixed and dilated. The patient guevara d no palpable pulse. The was pronounced at 1714 on 07/08/2018. The patient's family was notif ied. Dictated By: CHELLE SAAB/NTS Conf#: [id number] DID#: [id number] CC: CHIN LU MD;*EndCC*
== END 2018-07-08 17:14 | disposition expired | DRG 64 ==
LOC: ICU 10:31 → PP2 07-03 02:39 → 2NE 07-03 11:35
PROVIDERS: ADMIT Internal Medicine; ATTEND Internal Medicine
PROC: 5A1945Z Respiratory Ventilation, 24-96 Consecutive Hours (ICD-10-PCS; principal; 2018-07-01)
DX: I61.0 Nontraumatic intracerebral hemorrhage in hemisphere, subcortical (principal); G93.6 Cerebral edema; I69.354 Hemiplegia and hemiparesis following cerebral infarction affecting left non-dominant side; G93.40 Encephalopathy, unspecified; I61.5 Nontraumatic intracerebral hemorrhage, intraventricular; Z66 Do not resuscitate; Z51.5 Encounter for palliative care; E78.5 Hyperlipidemia, unspecified; E11.9 Type 2 diabetes mellitus without complications; I10 Essential (primary) hypertension; E03.9 Hypothyroidism, unspecified
CPT/HCPCS: 36600; 70450; 71045; 72040; 80053; 80061; 82550; 82553; 82803; 82962; 83036; 83735; 84100; 84439; 84443; 84484; 85025; 85610; 85730; 87081; 93306; 94002; 94003; 94770; 95819; C9113; J1815; J2060; J2250; J2270; J3010; J7030; J7050